=== PATIENT | male | born 1995 | race Caucasian/White ===

== ENCOUNTER 2017-11-21 12:09 | Emergency (ER) | payer OTHER ==
[~2017-11-21] VITALS: Ht 177.8 cm; Wt 94.6 kg
[2017-11-21 12:19] VITALS: BP 134/73
== END 2017-11-21 13:45 | disposition home or self-care (01) ==
LOC: ED 13:30
DX: S60.221A Contusion of right hand, initial encounter (principal); X58.XXXA Exposure to other specified factors, initial encounter; Y93.89 Activity, other specified; Y92.89 Other specified places as the place of occurrence of the external cause; Y99.8 Other external cause status
CPT/HCPCS: 99284